=== PATIENT | female | born 1985 | race Caucasian/White ===

== ENCOUNTER 2024-01-27 10:51 | Emergency (ER) | payer OTHER ==
--- OUTSIDE RECORDS SUMMARY | 2024-01-27 10:56 | XMS REPORT | Continuity of Care Document ---
Author Name Unknown Address [address] [facility] [address] [place] [address] [facility] thconnect Address [address] [facility] [address] [place] [address] Care Team Providers Care Finisher Hand Name Role Phone GC_JERRI_Livia_Elizabeth Attending Clinician Padmini Goodman Attending Clinician [phone] JAMIE_JERRI_Livia_I Admitting Clinician Terra campos Payers Payer Name Policy Type Policy Number Effective Date Expirati on Date Source [place] [id number] 2016 00:00:00 Problems Condition Name Condition Details Condition Category Status Onset Date Resolution Date Last Treatment Date Treating Clinician Comments Source Family history of breast cancer Family History of Breast Cancer Problem Active 3- 00:00: 00 [facility] Chronic endometrit is Chronic Endometrit is Problem Active 2019-07 2-11 00:00: 00 [facility] Premenstru al tension syndrome Premenstru al Tension Syndrome Problem Active 2019-07 0-06 00:00: 00 [facility] Allergies, Adverse Reactions, Alerts Allergy Name Allergy Type Status Severity Reaction(s) Onset Date Inactive Date Treating Clinician Comments Source PENICILL INS Allergy to substanc e Active Itching, Vomiting [facility] Social History Smoking Status Start Date Stop Date Source Never Smoker [facility] Medications Ordered Medication Name Filled Medication Name Start Date Stop Date Current Medication? Ordering Clinician Indication Dosage Frequency Signature (SIG) Comments Components Source azelastine 137 mcg (0.1 %) nasal spray aerosol USE 1 TO 2 SPRAYS INTRANASALL Y BID PRN azelastine 137 mcg (0.1 %) nasal spray aerosol USE 1 TO 2 SPRAYS INTRANASALL Y BID PRN No azelastine 137 mcg (0.1 %) nasal spray aerosol USE 1 TO 2 SPRAYS INTRANASAL LY BID PRN [facility] Claritin Claritin No Claritin [facility] magnesium magnesium No magnesium [facility] Probiotic Probiotic No Probiotic [facility] Vital Signs Vital Name Observation Time Observation Value Comments S ource BP Diastolic 2021-09-27 00:00:00 78 mm[Hg] [facility] Height 2021-09-27 00:00:00 68 [in_i] [facility] BMI (Body Mass Index) 2021-09-27 00:00:00 28[facility]3 [facility] Systolic 2021-09-27 00:00:00 123 mm[Hg] [facility] Body Weight 2021-09-27 00:00:00 185.8 [lb_av] [facility] Procedures Procedure Date / Time Performed Performing Clinicia n Source US, breast, unilateral, w/ axilla 2021-09-27 00:00:00 [facility] Dilation and Curettage 2020-06-14 00:00:00 [facility] Hysteroscopy 2020-06-14 00:00:00 [facility] edical Plan of Care Planned Activity Planned Date Details Comments Source Diagnostic Test Pending 2021-09-27 00:00:00 Cytomegalovirus Ab [Titer] in Serum or Plasma by Latex agglutination [code = 5121-9] [facility] Diagnostic Test Pending 2021-09-27 00:00:00 Weight of 24 hour Specimen [code = 3153-4] [facility] Encounters Start Date/Time End Date/Time Encounter Type Admission Type Attending Clinicians Care Facility Care Department Encounter ID Source 2021-09-27 12:26:00 2021-09-27 12:26:00 Outpatient GC_LTOBGYN_ Livia_I [facility] [id number] [facility] 2021-09-27 00:00:00 2021-09-27 00:00:00 Outpatient Padmini Bhakta [facility] [id number] 2021-09-27 00:00:00 2021-09-27 00:00:00 Padmini Bhakta, DO: [id number] [facility], [place] [address] , Ph. [facility] - GC_LTOBGYN_ [place] Office* [id number] [facility] 2021-09-25 11:24:00 2021-09-25 11:24:00 Outpatient GC_LTOBGYN_ Karban_I PRIV PRIV [id number] [facility] 2021-08-31 04:40:00 2021-08-31 04:40:00 Outpatient GC_LTOBGYN_ Karban_I PRIV PRIV [id number] [facility] 2021-08-31 04:40:00 2021-08-31 04:40:00 Outpatient GC_LTOBGYN_ Karban_I PRIV PRIV [id number] [facility] 2020-07-03 08:25:00 2020-07-03 08:25:00 Outpatient GC_LTOBGYN_ Karban_I PRIV PRIV [id number] [facility] 2020-07-03 08:25:00 2020-07-03 08:25:00 Outpatient GC_LTOBGYN_ Karban_I PRIV PRIV [id number] [facility]
[2024-01-27 11:20] LABS: Absolute Eosinophils 0.1 K/uL (0-0.5); Absolute Lymphocytes (CBC) 1.1 K/uL (0.7-4.9); Absolute Monocytes 0.5 K/uL (0.1-1.3); Basophils % 0.7 % (0-1.3); Eosinophils % 2.7 % (0-4.4); Hematocrit 45.4 % (36.0-45.0); Hemoglobin 15.5 g/dL (12.0-15.0); Lymphocytes % 29.3 % (15.3-44.8); MCH 28.8 pg (27.0-35.0); MCHC 34.1 g/dL (32.0-36.0); MCV 84.4 fL (80-100); MPV 7.2 fL (7.6-11.3); Monocytes % 13.2 % (3.3-12.3); Neutrophils % 54.1 % (41.7-73.7); Nucleated Red Blood Cells % 0.2 % (0-0); Platelets 248 thou/uL (152-406); RBC Red Blood Cell Count 5.38 M/uL (3.86-4.86); Red Cell Distribution Width 12.8 % (12.1-15.2)
[2024-01-27 11:36] LABS: Albumin 3.5 g/dL (3.4-5.0); Albumin/Globulin Ratio 0.9 (1.1-1.8); Anion Gap 8.9 mEq/L (5.0-15.0); Bilirubin Total 0.7 mg/dL (0.2-1.0); Globulin 3.7 g/dL (2.3-3.5); Potassium 3.9 mEq/L (3.5-5.1); Protein, Total 7.2 g/dL (6.4-8.2)
--- NOTE | 2024-01-27 13:56 | RAD REPORT ---
EXAM DESCRIPTION: CT - Abdomen Pelvis W Contrast - 01/27/2024 12:50 pm CLINICAL HISTORY: diarrhea;Abd pain COMPARISON: No comparisons TECHNIQUE: Thin cut axial CT imaging of the abdomen and pelvis was performed following intravenous a dministration of 100 mL Isovue 300. Multiplanar reformats were generated and reviewed. All CT scans are performed using dose optimization technique as appropriate and may include automated exposure control or mA/KV adjustment according to patient size. FINDINGS: No suspicious findings in the lung bases. The liver, spleen, adrenal glands, and pancreas show no suspicious findings. Gallbladder and biliary tree are also without suspicious finding. Symmetric renal function is seen with no hydronephrosis or suspicious renal mass. No dilated bowel loops or bowel wall thickening. No free air, fluid collection, or inflammatory stran ding. Small volume free pelvic fluid, possibly physiologic. Marginally enhancing collapsed left adnex al lesion, may represent a recently ruptured follicle. The appendix is unremarkable. No hernia, mass or bulky lymphadenopathy. The urinary bladder is without significant finding. No suspicious bony findings. IMPRESSION: No acute intra-abdominal process. Incidental findings as above.
--- NOTE | 2024-01-27 14:33 | ER ---
Nurse's Notes [facility] Name: Mignon Luu Age: 38 yrs Sex: Female : 1985 Arrival Date: 01/27/2024 Time: 10:51 Bed 12 Private MD: Diagnosis: Diarrhea, unspecified;Abdominal pain, unspecified Presentation: 01/26 11:01 Chief complaint: Patient states: "I've had diarrhea for 2 weeks and cannot get rid of mb9 it. My RLQ hurts as well.". Coronavirus screen: Vaccine status: Patient reports receiving the 2nd dose of the covid vaccine. Ebola Screen: No symptoms or risks identified at this time. Initial Sepsis Screen: Does the patient meet any 2 criteria? No. Patient's initial sepsis screen is negative. Does the patient have a suspected source of infection? No. Patient's initial sepsis screen is negative. Risk Assessment: Do you want to hurt yourself or someone else? Patient reports no desire to harm self or others. Onset of symptoms was 2023. 11:01 Acuity: ZACHARIAH 3 mb9 11:01 Method Of Arrival: Ambulatory mb9 Triage Assessment: 11:03 General: Appears in no apparent distress. Behavior is calm, cooperative. Pain: mb9 Complains of pain in abdomen Pain radiates to RLQ. EENT: No signs and/or symptoms were reported regarding the EENT system. Neuro: Nunes Agitation-Sedation Scale (RASS): 0 - Alert and Calm Level of Consciousness is awake, alert, obeys commands, Oriented to person, place, time, situation, Appropriate for age. Respiratory: Airway is patent Respiratory effort is even, unlabored, Respiratory pattern is regular, symmetrical. GI: Abdomen is flat, non-distended, Reports lower abdominal pain, diarrhea. Derm: Skin is pink, warm \\T\\ dry. 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 - Infectious Disease History:: Denies. - Social history:: Smoking status: Patient denies any tobacco usage or history of. Screenin:05 [facility] ED Fall Risk Assessment (Adult) History of falling in the last 3 months, mb9 including since admission No falls in past 3 months (0 pts) Confusion or Disorientation No (0 pts) Intoxicated or Sedated No (0 pts) Impaired Gait No (0 pts) Mobility Assist Device Used No (0 pt) Altered Elimination No (0 pt) Score/Fall Risk Level 0 - 2 = Low Risk Oriented to surroundings, Maintained a safe environment, Assessed \\T\\ reinforced patient's understanding of fall precautions. Abuse screen: Denies threats or abuse. Nutritional screening: No deficits noted. Tuberculosis screening: No symptoms or risk factors identified. Assessment: 11:06 Reassessment: see triage assessment. mb9 12:14 Reassessment: No changes from previously documented assessment. Patient and/or family mb9 updated on plan of care and expected duration. Pain level reassessed. Patient is alert, oriented x 3, equal unlabored respirations, skin warm/dry/pink. 14:46 Reassessment: No changes from previously documented assessment. Patient and/or family mb9 updated on plan of care and expected duration. Pain level reassessed. Patient is alert, oriented x 3, equal unlabored respirations, skin warm/dry/pink. Vital Signs: 11:01 BP 122 / 63; Pulse 74; Resp 18; Temp 98.2; Pulse Ox 100% ; Weight 85.28 kg; Height 5 mb9 ft. 8 in. ; Pain 7/10; 13:04 BP 113 / 78; Pulse 77; Resp 16; Pulse Ox 100% on R/A; mb9 14:46 Pulse 70; Resp 16; Pulse Ox 100% on R/A; mb9 11:01 Body Mass Index 28.59 (85.28 kg, 172.72 cm) mb9 11:01 Pain Scale: Adult mb9 ED Course: 10:53 Patient arrived in ED. mr 10:54 Olegario Saleh DO is Attending Physician. ms3 11:02 Triage completed. mb9 11:02 Arm band placed on. mb9 11:04 Harper Denny, JULISSA is Primary Nurse. mb9 11:05 Placed in gown. Bed in low position. Call light in reach. Side rails up X 1. Provided mb9 Education on: press call light if needing anything. Client placed on continuous cardiac and pulse oximetry monitoring. NIBP monitoring applied. 11:13 CBC with Diff Sent. mb9 11:13 No provider procedures requiring assistance completed. Initial lab(s) drawn, by me, crescencio sent to lab. Inserted saline lock: 22 gauge in right antecubital area, using aseptic technique. Blood collected. Flushed with 10 mL NS. 12:52 CT Abd/Pelvis - IV Contrast Only In Process Unspecified. EDMS 14:33 Alvin Oglesby DO is Referral Physician. ms3 14:46 IV discontinued, intact, bleeding controlled, No redness/swelling at site. Pressure mb9 dressing applied. Administered Medications: No medications were administered Medication: 11:05 VIS not applicable for this client. mb9 Outcome: 14:33 Discharge ordered by MD. ms3 14:46 Discharged to home ambulatory, mb9 14:46 Condition: stable 14:46 Discharge instructions given to patient, Instructed on discharge instructions, follow up and referral plans. Demonstrated understanding of instructions, follow-up care, medications, Prescriptions given X 1, 14:47 Patient left the ED. mb9 Signatures: Dispatcher [employer] EDAR Harper Almanza, Reg Reg Olegario Sandoval, DO ms3 Harper Denny, RN RN mb9 Corrections: (The following items were deleted from the chart) 11:04 11:01 Pulse 74bpm; Resp 18bpm; Pulse Ox 100%; Temp 98.2F; 85.28 kg; Height 5 ft. 8 in.; mb9 BMI: 28.5; Pain 7/10, Adult; mb9
--- NOTE | 2024-01-27 14:33 | EDPHYS ---
Physician Documentation [facility] Name: Mignon Luu Age: 38 yrs Sex: Female : 1985 Arrival Date: 01/27/2024 Time: 10:51 Bed 12 Private MD: ED Physician Olegario Saleh HPI: 01/26 11:48 This 38 yrs old Female presents to ER via Ambulatory with complaints of Diarrhea. ms3 11:48 38-year-old female with no past medical history presents to the emergency department ms3 for diarrhea that has been ongoing for 2 weeks. Patient denies nausea or vomiting. She endorses abdominal pain that is described as cramping and located in the right lower quadrant. She states her discomfort is a 6/10. 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 - Infectious Disease History:: Denies. - Social history:: Smoking status: Patient denies any tobacco usage or history of. ROS: 11:48 Constitutional: Negative for fever, and chills. Cardiovascular: Negative for chest ms3 pain, and palpitations. Respiratory: Negative for shortness of breath, cough, wheezing, and pleuritic chest pain, 11:48 MS/Extremity: Negative for injury and deformity, 11:48 Abdomen/GI: Positive for abdominal pain, diarrhea, Exam: 11:48 Constitutional: This is a well developed, well nourished patient who is awake, alert, ms3 and in no acute distress. Chest/axilla: Normal chest wall appearance and motion. Nontender with no deformity. Cardiovascular: Regular rate and rhythm with a normal S1 and S2. No gallops, murmurs, or rubs. Normal PMI, no JVD. No pulse deficits. Respiratory: Lungs have equal breath sounds bilaterally, clear to auscultation and percussion. No rales, rhonchi or wheezes noted. No increased work of breathing, no retractions or nasal flaring. 11:48 Abdomen/GI: Inspection: abdomen appears normal, Bowel sounds: normal, in all quadrants, Palpation: mild abdominal tenderness, in the right upper quadrant, Vital Signs: 11:01 BP 122 / 63; Pulse 74; Resp 18; Temp 98.2; Pulse Ox 100% ; Weight 85.28 kg; Height 5 mb9 ft. 8 in. ; Pain 7/10; 13:04 BP 113 / 78; Pulse 77; Resp 16; Pulse Ox 100% on R/A; mb9 14:46 Pulse 70; Resp 16; Pulse Ox 100% on R/A; mb9 11:01 Body Mass Index 28.59 (85.28 kg, 172.72 cm) mb9 11:01 Pain Scale: Adult mb9 MDM: 11:03 Patient medically screened. ms3 11:48 Differential diagnosis: Nonspecific abd pain, gastritis, cholecystitis, pancreatitis, ms3 appendicitis, diverticulitis, viral gastroenteritis, gastroenteritis. 14:35 Data reviewed: vital signs, nurses notes, lab test result(s), radiologic studies, and ms3 as a result, I will discharge patient. I considered the following discharge prescriptions or medication management in the emergency department Medications were administered in the Emergency Department. See MAR. Independent interpretation of the following test(s) in the Emergency Department CT Scan: My interpretation is CT abd/pelvis with contrast images reviewed by me do not reveal free air. Special discussion: I discussed with the patient/guardian in detail that at this point there is no indication for admission to the hospital. It is understood, however, that if the symptoms persist or worsen the patient needs to return immediately for re-evaluation. ED course: Discussed CT findings without any acute intra-abdominal findings and labs with patient. Patient to follow-up with primary care physician in 2 to 3 days. Patient understands and agrees with plan. All questions were answered. Return precautions discussed include worsening symptoms, or any other concerns.. 01/26 11:04 Order name: CBC with Diff; Complete Time: 11:39 ms3 01/26 11:04 Order name: CMP; Complete Time: 11:39 ms3 01/26 11:48 Order name: Lipase; Complete Time: 13:50 ms3 01/26 11:48 Order name: CT Abd/Pelvis - IV Contrast Only; Complete Time: 14:01 ms3 01/26 11:04 Order name: IV Saline Lock; Complete Time: 11:13 ms3 01/26 11:04 Order name: Labs collected and sent; Complete Time: 11:13 ms3 Administered Medications: No medications were administered Disposition Summary: 01/27/24 14:33 Discharge Ordered Notes: Location: Home ms3 Condition: Stable ms3 Diagnosis - Diarrhea, unspecified ms3 - Abdominal pain, unspecified ms3 Followup: ms3 - With: Alvin Oglesby DO - When: 2 - 3 days - Reason: Recheck today's complaints Discharge Instructions: - Discharge Summary Sheet ms3 - Abdominal Pain, Adult ms3 - Diarrhea, Adult ms3 Forms: - Medication Reconciliation Form ms3 - Antibiotic Education ms3 - Prescription Opioid Use ms3 - Patient Portal Instructions ms3 - Leadership Thank You Letter ms3 - Work release form mb9 Prescriptions: - loperamide 2 mg Oral capsule - take 1 capsule ORAL route every 2 hours as needed for loose stool; until ms3 patient has gone 12 hours without a bowel movement; 20 capsule; Refills: 0, Product Selection Permitted Signatures: Dispatcher [employer] Olegario Bridges DO DO ms3 Harper Denny, RN RN mb9
[2024-01-29 17:21] VITALS: BP 113/78; TEMP 98.2; O2SAT 100
== END 2024-01-27 14:47 | disposition home or self-care (01) ==
LOC: ER 10:51
DX: R19.7 Diarrhea, unspecified (principal); R10.9 Unspecified abdominal pain; Z88.0 Allergy status to penicillin
CPT/HCPCS: 85025; 36415; 83690; 80053; 74177; 99284; Q9967

== ENCOUNTER 2024-02-06 22:09 | Emergency (ER) | payer OTHER ==
--- OUTSIDE RECORDS SUMMARY | 2024-02-06 22:12 | XMS REPORT | Continuity of Care Document ---
Author Name Unknown Address [address] [facility] [address] [place] [address] [facility] thconnect Address [address] [facility] [address] [place] [address] Care Team Providers Care Perinatology Physician Name Role Phone [email or web address]_I Attending Clinician Caden Goodman Attending Clinician [phone] CADEN FARLEY Attending Clinician Unavailable [email or web address]_Karban_I Admitting Clinician Terra campos Payers Payer Name Policy Type Policy Number Effective Date Expirati on Date Source [place] [id number] 2016 00:00:00 Problems Condition Name Condition Details Condition Category Status Onset Date Resolution Date Last Treatment Date Treating Clinician Comments Source Family history of breast cancer Family History of Breast Cancer Problem Active 3-21 00:00: 00 [facility] Chronic endometrit is [...] TO 2 SPRAYS INTRANASAL LY BID PRN [facility] Claritin Claritin No Claritin [facility] magnesium magnesium No magnesium [facility] Probiotic Probiotic No Probiotic [facility] Vital Signs Vital Name Observation Time Observation Value Comments S ource BP Diastolic 2021-09-27 00:00:00 78 mm[Hg] [facility] Height 2021-09-27 00:00:00 68 [in_i] [facility] BMI (Body Mass Index) 2021-09-27 00:00:00 28.3 kg/m2 [facility] BP Systolic 2021-09-27 00:00:00 123 mm[Hg] [facility] Body Weight 2021-09-27 00:00:00 185.8 [lb_av] [facility] Procedures Procedure Date / Time Performed Performing Clinicia n Source US, breast, unilateral, w/ axilla 2021-09-27 00:00:00 [facility] Dilation and Curettage 2020-06-14 00:00:00 [facility] Hysteroscopy 2020-06-14 00:00:00 [facility] Plan of Care Planned Activity Planned Date Details Comments Source Diagnostic Test Pending 2021-09-27 00:00:00 Cytomegalovirus Ab [Titer] in Serum or Plasma by Latex agglutination [code = 5121-9] [facility] Diagnostic Test Pending 2021-09-27 00:00:00 Weight of 24 hour Specimen [code = 3153-4] [facility] Encounters Start Date/Time End Date/Time Encounter Type Admission Type Attending Clinicians Care Facility Care Department Encounter ID Source 2021-09-27 12:26:00 2021-09-27 12:26:00 Outpatient JAMIE_LTOBROHAN_ Livia_I [facility] [id number] [facility] 2021-09-27 00:00:00 2021-09-27 00:00:00 Caden Farley, DO: [id number] [facility], [place] [address] , Ph. [facility] - GC_LTOBGYN_ [place] Office* [id number] [facility] 2021-09-27 00:00:00 2021-09-27 00:00:00 Outpatient Caden Farley PRIV PRIV [id number] 2021-09-25 11:24:00 2021-09-25 11:24:00 Outpatient GC_LTOBGYN_ Karban_I PRIV PRIV [id number] [facility] 2021-08-31 04:40:00 2021-08-31 04:40:00 Outpatient GC_LTOBGYN_ Karban_I PRIV PRIV [id number] [facility] 2021-08-31 04:40:00 2021-08-31 04:40:00 Outpatient GC_LTOBGYN_ Karban_I PRIV PRIV [id number] [facility] 2020-07-03 08:25:00 2020-07-03 08:25:00 Outpatient GC_LTOBGYN_ Karban_I PRIV PRIV [id number] [facility] 2020-07-03 08:25:00 2020-07-03 08:25:00 Outpatient GC_LTOBGYN_ Karban_I PRIV PRIV [id number] [facility] 2020-06-14 09:29:00 2020-06-14 14:00:00 Outpatient CADEN FARLEY [id number] [facility]
[2024-02-06] MEDS ORDERED: METOCLOPRAMIDE 10 MG/2mL INJ ONE (23:08)
[2024-02-06] MEDS ORDERED: DIPHENHYDRAMINE 50 MG/ML VIAL ONE (23:08)
[2024-02-06] MEDS ORDERED: KETOROLAC 30 MG/ML INJ ONE (23:08)
[2024-02-06] MEDS ORDERED: NA CHLORIDE 0.9% 1,000 ML ONE (23:08)
[2024-02-06] MEDS ORDERED: FAMOTIDINE 20 MG/2 ML VIAL IV ONE (23:08)
[2024-02-06 23:28] LABS: Absolute Eosinophils 0.1 K/uL (0-0.5); Absolute Lymphocytes (CBC) 1.1 K/uL (0.7-4.9); Absolute Monocytes 0.4 K/uL (0.1-1.3); Absolute Neutrophil 3.7 K/uL (1.8-8.0); Basophils % 0.5 % (0-1.3); Eosinophils % 2.5 % (0-4.4); Hematocrit 40.9 % (36.0-45.0); Hemoglobin 13.7 g/dL (12.0-15.0); Lymphocytes % 20.8 % (15.3-44.8); MCH 28.6 pg (27.0-35.0); MCHC 33.6 g/dL (32.0-36.0); MCV 85.2 fL (80-100); MPV 6.9 fL (7.6-11.3); Monocytes % 7.3 % (3.3-12.3); Neutrophils % 68.9 % (41.7-73.7); Nucleated Red Blood Cells % 0.2 % (0-0); Platelets 270 thou/uL (152-406); Red Cell Distribution Width 13.1 % (12.1-15.2)
[2024-02-06 23:37] LABS: Albumin 3.2 g/dL (3.4-5.0); Anion Gap 6.5 mEq/L (5.0-15.0); Bilirubin Total 0.5 mg/dL (0.2-1.0); Globulin 3.2 g/dL (2.3-3.5); Potassium 3.5 mEq/L (3.5-5.1); Protein, Total 6.4 g/dL (6.4-8.2)
--- NOTE | 2024-02-07 01:43 | ER ---
Nurse's Notes [facility] Name: Mignon Luu Age: 38 yrs Sex: Female : 1985 Arrival Date: 02/06/2024 Time: 22:09 Bed 20 Private MD: Diagnosis: Nausea with vomiting, unspecified Presentation: 02/05 22:29 Chief complaint: Patient states: Pt c/o migraine since noon today and vomiting since tl4 1600 today. Pt states she has had diarrhea x 3 weeks and was diagnosed with c-diff. Pt started on flagyl 500 mg/TID yesterday. Pt states urine is dark, denies associated urinary sxs. Coronavirus screen: At this time, the client does not indicate any symptoms associated with coronavirus-19. Ebola Screen: No symptoms or risks identified at this time. Initial Sepsis Screen: Does the patient meet any 2 criteria? No. Patient's initial sepsis screen is negative. Does the patient have a suspected source of infection? No. Patient's initial sepsis screen is negative. Risk Assessment: Do you want to hurt yourself or someone else? Patient reports no desire to harm self or others. Onset of symptoms was February 06, 2024 at 12:00. 22:29 Method Of Arrival: Ambulatory tl4 22:29 Acuity: ZACHARIAH 3 tl4 Triage Assessment: 22:34 General: Appears ill, Behavior is cooperative. Pain: Complains of pain in head. EENT: tl4 No signs and/or symptoms were reported regarding the EENT system. Neuro: Level of Consciousness is awake, alert, obeys commands, Oriented to person, place, time, situation, Reports headache. Cardiovascular: Capillary refill < 3 seconds Patient's skin is warm and dry. Respiratory: Airway is patent Respiratory effort is even, unlabored, Respiratory pattern is regular, symmetrical. GI: Reports diarrhea, nausea, vomiting. : Reports dark urine. Derm: No signs and/or symptoms reported regarding the dermatologic system. Musculoskeletal: No signs and/or symptoms reported regarding the musculoskeletal system. PEDIATRIC PSYCHOLOGIST: 02/06 01:58 unknown al5 Historical: - Allergies: 02/05 22:32 PENICILLINS; tl4 - Home Meds: 22:32 Ubrelvy oral [Active]; [place] Thyroid Oral [Active]; Flagyl Oral [Active]; tl4 metronidazole 500 mg Oral tablet 1 tab 3 times per day [Active]; testosterone implant [Active]; - PMHx: 22:32 Migraine; Hypothyroidism; tl4 - Immunization history:: Adult Immunizations unknown. - Infectious Disease History:: CDIFF, . - Social history:: Smoking status: Patient denies any tobacco usage or history of. Screenin:51 [facility] ED Fall Risk Assessment (Adult) History of falling in the last 3 months, al5 including since admission No falls in past 3 months (0 pts) Confusion or Disorientation No (0 pts) Intoxicated or Sedated No (0 pts) Impaired Gait No (0 pts) Mobility Assist Device Used No (0 pt) Altered Elimination No (0 pt) Score/Fall Risk Level 0 - 2 = Low Risk Oriented to surroundings, Maintained a safe environment, Hourly rounding (assess needs \T\ fall precautionary measures) done. Abuse screen: Denies threats or abuse. Denies injuries from another. Nutritional screening: No deficits noted. Tuberculosis screening: No symptoms or risk factors identified. Assessment: 22:52 General: Appears in no apparent distress. uncomfortable, ill, Behavior is calm, al5 cooperative. Pain: Complains of pain in head. Neuro: Level of Consciousness is awake, alert, obeys commands, Oriented to person, place, time, situation. Cardiovascular: Patient's skin is warm and dry. Respiratory: Airway is patent Respiratory effort is even, unlabored, Respiratory pattern is regular, symmetrical. GI: Abdomen is round non-distended, Pt is actively vomiting bile, clear fluid, Reports nausea, vomiting. : No signs and/or symptoms were reported regarding the genitourinary system. EENT: No signs and/or symptoms were reported regarding the EENT system. Derm: Skin is intact, Skin is pink, warm \T\ dry. normal. Musculoskeletal: No signs and/or symptoms reported regarding the musculoskeletal system. 23:48 Reassessment: Patient appears in no apparent distress at this time. No changes from al5 previously documented assessment. Patient and/or family updated on plan of care and expected duration. Pain level reassessed. Patient is alert, oriented x 3, equal unlabored respirations, skin warm/dry/pink. 02/06 00:29 Reassessment: Patient appears in no apparent distress at this time. No changes from al5 previously documented assessment. Patient and/or family updated on plan of care and expected duration. Pain level reassessed. Patient is alert, oriented x 3, equal unlabored respirations, skin warm/dry/pink. Patient states symptoms have improved. 01:48 Reassessment: Patient appears in no apparent distress at this time. No changes from al5 previously documented assessment. Patient and/or family updated on plan of care and expected duration. Pain level reassessed. Patient is alert, oriented x 3, equal unlabored respirations, skin warm/dry/pink. Patient states feeling better. Vital Signs: 02/05 22:29 BP 123 / 73; Pulse 64; Resp 16; Temp 97.3(O); Pulse Ox 100% ; Weight 83.91 kg; Height 5 tl4 ft. 8 in. ; Pain 9/10; 22:45 BP 118 / 82; Pulse 90; Resp 18; Pulse Ox 99% on R/A; al5 23:00 BP 134 / 78; Pulse 87; Resp 18; Pulse Ox 99% on R/A; al5 23:30 BP 134 / 88; Pulse 69; Resp 18; Pulse Ox 100% on R/A; al5 02/06 00:00 BP 123 / 83; Pulse 62; Resp 18; Pulse Ox 99% on R/A; al5 01:00 BP 110 / 66; Pulse 59; Resp 18; Pulse Ox 99% on R/A; al5 01:30 BP 112 / 61; Pulse 58; Resp 18; Pulse Ox 100% on R/A; al5 02/05 22:29 Body Mass Index 28.13 (83.91 kg, 172.72 cm) tl4 02/05 22:29 Pain Scale: Adult tl4 ED Course: 02/05 22:15 Patient arrived in ED. gm2 22:19 Blanche Cotter PA-C is PHCP. sb4 22:19 Rohith Weber MD is Attending Physician. sb4 22:32 Triage completed. tl4 22:35 Arm band placed on left wrist. tl4 22:45 Rosa M Mahajan, JULISSA is Primary Nurse. al5 22:52 Patient has correct armband on for positive identification. Bed in low position. Call al5 light in reach. Side rails up X 1. Provided Education on: processes and procedures. 22:52 No provider procedures requiring assistance completed. al5 23:07 CBC with Diff Sent. al5 23:07 CMP Sent. al5 23:07 Lipase Sent. al5 23:14 Inserted saline lock: 22 gauge in right antecubital area, using aseptic technique. al5 ,using aseptic technique. done by ER staff Blood collected. 02/06 01:58 IV discontinued, intact, bleeding controlled, No redness/swelling at site. Pressure al5 dressing applied. Administered Medications: 02/05 23:22 Drug: Ketorolac IVP 15 mg IVP once Route: IVP; Site: right antecubital; tl4 02/06 01:57 Follow up: Response: No adverse reaction al5 02/05 23:22 Drug: metoCLOPramide IVP 10 mg IVP once; over 1 to 2 minutes Route: IVP; Infused Over: tl4 2 mins; Site: right antecubital; 02/06 01:57 Follow up: Response: No adverse reaction al5 02/05 23:22 Drug: diphenhydrAMINE IVP 25 mg IVP once Route: IVP; Infused Over: 2 mins; Site: right tl4 antecubital; 02/06 01:57 Follow up: Response: No adverse reaction al5 02/05 23:23 Drug: NS 0.9% IV 1000 ml IV at 1 bolus Per protocol; 1000 mL bolus Route: IV; Rate: 1 tl4 bolus; Site: right antecubital; Delivery: Primary tubing; 02/06 01:57 Follow up: Response: No adverse reaction; IV Status: Completed infusion; IV Intake: al5 1000ml 02/05 23:23 Drug: Famotidine IVP 20 mg IVP once; dilute with 10 mL 0.9% NaCl; give over 2 minutes tl4 Route: IVP; Infused Over: 2 mins; Site: right antecubital; 02/06 01:57 Follow up: Response: No adverse reaction al5 Medication: 02/05 22:52 VIS not applicable for this client. al5 Intake: 02/06 01:57 IV: 1000ml; Total: 1000ml. al5 Outcome: 01:43 Discharge ordered by . sb4 01:58 Discharged to home ambulatory, with significant other, al5 01:58 Condition: good 01:58 Discharge instructions given to patient, Instructed on discharge instructions, follow up and referral plans. medication usage, Demonstrated understanding of instructions, follow-up care, medications, Prescriptions given X 1, 01:59 Patient left the ED. al5 Signatures: Blanche Cotter PA-C PA-C sb4 Kina Robin gm2 Lalo Conway RN RN tl4 Rosa M Mahajan RN RN al5
--- NOTE | 2024-02-07 01:43 | EDPHYS ---
Physician Documentation [facility] Name: Mignon Luu Age: 38 yrs Sex: Female : 1985 Arrival Date: 02/06/2024 Time: 22:09 Bed 20 Private MD: ED Physician Rohith Weber HPI: 02/05 23:05 This 38 yrs old Female presents to ER via Ambulatory with complaints of sb4 Nausea/Vomiting/Diarrhea, migraine. 23:05 patient reports nausea, vomiting, diarrhea, and migraine. she states she has had sb4 diarrhea for about 4 weeks now, saw GI who diagnosed her with cdiff and started her on flagyl yesterday. states the medication upset her stomach and she has been experiencing nausea/vomiting since which has now resulted in a migraine. denies any abdominal pain, chest pain, sob, or fever. ST[employer]: 02/06 01:58 unknown al5 Historical: - Allergies: 02/05 22:32 PENICILLINS; tl4 - Home Meds: 22:32 Ubrelvy oral [Active]; [place] Thyroid Oral [Active]; Flagyl Oral [Active]; tl4 metronidazole 500 mg Oral tablet 1 tab 3 times per day [Active]; testosterone implant [Active]; - PMHx: 22:32 Migraine; Hypothyroidism; tl4 - Immunization history:: Adult Immunizations unknown. - Infectious Disease History:: CDIFF, . - Social history:: Smoking status: Patient denies any tobacco usage or history of. ROS: 23:07 Constitutional: Negative for fever, chills, and weight loss, sb4 23:07 Abdomen/GI: Positive for abdominal pain, nausea, vomiting, and diarrhea, 23:07 Neuro: Positive for headache, 23:07 All other systems are negative, Exam: 23:07 Head/Face: Normocephalic, atraumatic. Eyes: Extra-ocular motions intact. Periorbital sb4 areas with no swelling, redness, or edema. ENT: Mucous membranes moist. Cardiovascular: Regular rate and rhythm with a normal S1 and S2. Respiratory: Lungs have equal breath sounds bilaterally, clear to auscultation and percussion. No rales, rhonchi or wheezes noted. No increased work of breathing, no retractions or nasal flaring. Abdomen/GI: Soft, non-tender, no distension. Skin: Warm, dry with normal turgor. Normal color with no rashes, no lesions, and no evidence of cellulitis. 23:07 Constitutional: The patient appears alert, awake, vomiting Vital Signs: 22:29 BP 123 / 73; Pulse 64; Resp 16; Temp 97.3(O); Pulse Ox 100% ; Weight 83.91 kg; Height 5 tl4 ft. 8 in. ; Pain 9/10; 22:45 BP 118 / 82; Pulse 90; Resp 18; Pulse Ox 99% on R/A; al5 23:00 BP 134 / 78; Pulse 87; Resp 18; Pulse Ox 99% on R/A; al5 23:30 BP 134 / 88; Pulse 69; Resp 18; Pulse Ox 100% on R/A; al5 02/06 00:00 BP 123 / 83; Pulse 62; Resp 18; Pulse Ox 99% on R/A; al5 01:00 BP 110 / 66; Pulse 59; Resp 18; Pulse Ox 99% on R/A; al5 01:30 BP 112 / 61; Pulse 58; Resp 18; Pulse Ox 100% on R/A; al5 02/05 22:29 Body Mass Index 28.13 (83.91 kg, 172.72 cm) 4 02/05 22:29 Pain Scale: Adult tl4 MDM: 02/05 22:24 Patient medically screened. 4 02/06 01:33 Data reviewed: vital signs, nurses notes, lab test result(s), and as a result, I will sb4 discharge patient. Counseling: I had a detailed discussion with the patient and/or guardian regarding the historical points, exam findings, and any diagnostic results supporting the discharge/admit diagnosis, lab results, to return to the emergency department if symptoms worsen or persist or if there are any questions or concerns that arise at home. 02/05 22:53 Order name: CBC with Diff; Complete Time: 23:39 sb4 02/05 22:53 Order name: CMP; Complete Time: 23:38 sb4 02/05 22:53 Order name: Lipase; Complete Time: 23:38 sb4 02/05 22:53 Order name: IV Saline Lock; Complete Time: 23:07 sb4 02/05 22:53 Order name: Labs collected and sent; Complete Time: 23:07 sb4 02/06 00:47 Order name: PO challenge; Complete Time: 01:33 sb4 Administered Medications: 02/05 23:22 Drug: Ketorolac IVP 15 mg IVP once Route: IVP; Site: right antecubital; tl4 02/06 01:57 Follow up: Response: No adverse reaction al5 02/05 23:22 Drug: metoCLOPramide IVP 10 mg IVP once; over 1 to 2 minutes Route: IVP; Infused Over: tl4 2 mins; Site: right antecubital; 02/06 01:57 Follow up: Response: No adverse reaction al5 02/05 23:22 Drug: diphenhydrAMINE IVP 25 mg IVP once Route: IVP; Infused Over: 2 mins; Site: right tl4 antecubital; 02/06 01:57 Follow up: Response: No adverse reaction al5 02/05 23:23 Drug: NS 0.9% IV 1000 ml IV at 1 bolus Per protocol; 1000 mL bolus Route: IV; Rate: 1 tl4 bolus; Site: right antecubital; Delivery: Primary tubing; 02/06 01:57 Follow up: Response: No adverse reaction; IV Status: Completed infusion; IV Intake: al5 1000ml 02/05 23:23 Drug: Famotidine IVP 20 mg IVP once; dilute with 10 mL 0.9% NaCl; give over 2 minutes tl4 Route: IVP; Infused Over: 2 mins; Site: right antecubital; 02/06 01:57 Follow up: Response: No adverse reaction al5 Disposition: 23:09 Co-signature as Attending Physician, Rohith Weber MD I agree with the assessment sp4 and plan of care. I reviewed the patient's care provided by the Advanced Practice Provider and agree with the diagnosis and treatment plan. Disposition Summary: 02/07/24 01:43 Discharge Ordered Notes: Location: Home sb4 Problem: new sb4 Symptoms: have improved sb4 Condition: Stable sb4 Diagnosis - Nausea with vomiting, unspecified sb4 Followup: sb4 - With: Private Physician - When: As needed - Reason: Recheck today's complaints, Re-evaluation by your physician Discharge Instructions: - Discharge Summary Sheet sb4 - Nausea and Vomiting, Adult sb4 Forms: - Patient Portal Instructions sb4 - Leadership Thank You Letter sb4 Prescriptions: - ondansetron 8 mg Oral Tablet,disintegrating - take 1 tablet ORAL route every 6 hours; 12 tablet; Refills: 0, Product sb4 Selection Permitted Signatures: Dispatcher [employer] Blanche Beth PA-C PA-C sb4 Rohith Weber MD MD sp4 Lalo Conway RN RN tl4 Rosa M Mahajan RN al5
[2024-02-07 06:42] VITALS: TEMP 97.3
[2024-02-07 07:02] VITALS: BP 112/61; O2SAT 100
== END 2024-02-07 01:59 | disposition home or self-care (01) ==
LOC: ER 22:09
DX: R11.2 Nausea with vomiting, unspecified (principal)
CPT/HCPCS: 96361; 85025; 36415; 83690; 80053; 96375; 96374; 99284; J2765; J1200; J7030